=== PATIENT | female | born 1975 | race Caucasian/White ===

== ENCOUNTER 2017-04-06 12:46 | Emergency (ER) | payer MEDICARE, OTHER ==
[2017-04-06 12:59] VITALS: BP 126/73; PULSE 63; RESP 18; TEMP 97.6
--- NOTE | 2017-04-06 13:21 | ED ---
ENT HPI - General Chief complaint: Dental/Oral Stated complaint: Tooth Pain Time Seen by Provider: 04/06/17 13:14 Source: patient Mode of arrival: ambulatory Limitations: no limitations - History of Present Illness Initial comments: Patient is a 42-year-old female presenting to the emergency department with complaints of right lower toothache to tooth #30. Patient states she has a history of a fractured tooth to tooth #30 and has been trying to get into the dental clinic to have it pulled for 3 months. Patient states that yesterday morning, the tooth and surrounding gum tissue started hurting. Patient states she took some Tylenol 3 at home with minimal relief. Patient denies chills, fevers, nausea, vomiting, shortness of breath, trismus, chest pain, or abdominal pain. Patient denies ear pain. Patient denies antibiotic use in the last 30 days. MD complaint: tooth pain Onset/Timin -: days(s) Location: tooth # (30) Severity: moderate Severity scale (1-10): 8 Quality: burning, sharp Improves with: cold therapy Worsens with: eating Context- Dental: history of dental caries (Fractured tooth #30) Associated Symptoms: gum swelling, toothache - Related Data Previous Rx's Medication Instructions Recorded Acetaminophen-Codeine 300-30mg 1 tab PO Q4H PRN #12 tablet 04/06/17 [Tylenol #3] Ibuprofen [Motrin] 800 mg PO Q8H PRN #20 tab 04/06/17 Penicillin V Potassium [Pen Vee K] 500 mg PO QID #28 tab 04/06/17 Allergies Allergy/AdvReac Type Severity Reaction Status Date / Time bee venom protein (honey bee) Allergy Anaphylaxis Verified 04/06/17 12:59 lovastatin Allergy Anaphylaxis Verified 04/06/17 12:59 Sulfa (Sulfonamide Allergy Nausea & Verified 04/06/17 12:59 Antibiotics) Vomiting metal Allergy Rash/Hives Uncoded 04/06/17 12:59 Review of Systems ROS Statement: Those systems with pertinent positive or pertinent negative responses have been documented in the HPI. ROS Other: All systems not noted in ROS Statement are negative. Past Medical History Past Medical History: Cancer Additional Past Medical History / Comment(s): breast, kidney disease, post head injury History of Any Multi-Drug Resistant Organisms: None Reported Past Surgical History: Breast Surgery, Cholecystectomy, Orthopedic Surgery, Tubal Ligation Additional Past Surgical History / Comment(s): wrist, finger Past Psychological History: Anxiety, PTSD Smoking Status: Current every day smoker Past Alcohol Use History: Rare Past Drug Use History: Unable to Obtain General Exam Limitations: no limitations General appearance: alert, in no apparent distress Head exam: Present: atraumatic, normocephalic, normal inspection Eye exam: Present: normal appearance, PERRL ENT exam: Present: normal exam, normal oropharynx, mucous membranes moist, TM's normal bilaterally, normal external ear exam Expanded Ear exam: Present: normal external inspection Mouth exam: Present: normal external inspection, tongue normal. Absent: drooling, trismus Teeth exam: Present: fractured tooth # (30), dental tenderness # (30), gingival enlargement (Adjacent to tooth #30, no evidence of abscess) Throat exam: normal inspection. negative: tonsillar erythema, tonsillar exudate , R peritonsillar mass Neck exam: Present: normal inspection, full ROM. Absent: tenderness, lymphadenopathy Respiratory exam: Present: normal lung sounds bilaterally. Absent: respiratory distress, wheezes, rales, rhonchi, stridor Cardiovascular Exam: Present: regular rate, normal rhythm, normal heart sounds. Absent: systolic murmur, diastolic murmur, rubs, gallop, clicks GI/Abdominal exam: Present: soft, normal bowel sounds. Absent: distended, tenderness, guarding, rebound, rigid Extremities exam: Present: normal inspection, full ROM, normal capillary refill. Absent: tenderness, pedal edema, joint swelling, calf tenderness Neurological exam: Present: alert, oriented X3, normal gait, other (No focal deficits noted) Psychiatric exam: Present: normal affect, normal mood Skin exam: Present: warm, dry, intact, normal color Course Vital Signs 04/06/17 12:54 Temperature 97.6 F Pulse Rate 63 Respiratory 18 Rate Blood Pressure 126/73 O2 Sat by Pulse 98 Oximetry Medical Decision Making - Medical Decision Making Toothache with minimal gum swelling to tooth #30 with history of fracture to same tooth. Patient placed on antibiotics and pain medicine. Patient instructed [facility]. Patient given instructions and phone number to dental clinic. Patient started to follow-up with primary care physician and return to the emergency department if symptoms do not improve or get worse. Patient agrees with treatment plan. Discharge instructions and return parameters reviewed. Disposition Clinical Impression: Toothache, Fracture of tooth Disposition: HOME SELF-CARE Condition: Good Instructions: Toothache (ED) Additional Instructions: Finish antibiotics as prescribed. Continue Motrin and Tylenol 3 for pain as needed. May apply warm compresses for relief. Follow-up with [facility], please see address and phone number provided on discharge. Follow-up with primary care physician as needed. Please return to the emergency department if symptoms do not improve or get worse. Prescriptions: Acetaminophen-Codeine 300-30mg [Tylenol #3] 1 tab PO Q4H PRN #12 tablet PRN Reason: Pain Ibuprofen [Motrin] 800 mg PO Q8H PRN #20 tab PRN Reason: Pain Penicillin V Potassium [Pen Vee K] 500 mg PO QID #28 tab Referrals: Nikolay Edwards DO [Primary Care Provider] - 1-2 days Time of Disposition: 13:20
== END 2017-04-06 13:35 | disposition home or self-care (01) ==
LOC: EC 12:46
DX: S02.5XXA Fracture of tooth (traumatic), initial encounter for closed fracture (principal); F17.200 Nicotine dependence, unspecified, uncomplicated; Z85.3 Personal history of malignant neoplasm of breast; Z88.2 Allergy status to sulfonamides; Z88.8 Allergy status to other drugs, medicaments and biological substances; Z91.030 Bee allergy status; X58.XXXA Exposure to other specified factors, initial encounter
CPT/HCPCS: 99282

== ENCOUNTER → 2017-07-31 | Outpatient (CLI) | payer MEDICARE, OTHER ==
--- NOTE | 2017-08-07 07:16 | MM ---
Reason for exam: clinical finding. Last mammogram was performed 2 years and 7 months ago. History: Family history of breast cancer in sister at age 43. Benign excisional biopsy of the right breast. Indicated problem(s): lump or thickening in both breasts. Physical Findings: Nurse Summary: 0.5cm nodule in the right breast at 12 o'clock and a 1cm nodule in the left breast at 12 o'clock (nurse kp). MG Diagnostic Mammo w CAD JAISON Bilateral CC and MLO view(s) were taken. Prior study comparison: December 22, 2014, mammogram, performed at [facility] [place]. March 10, 2008, mammogram, performed at [facility] [place]. The breast tissue is extremely dense which could obscure a lesion on mammography. There is no discrete abnormality at bilateral BB's. No significant new findings when compared with previous films. These results were verbally communicated with the patient and result sheet given to the patient on 07/31/17. ASSESSMENT: Negative, BI-RAD 1 RECOMMENDATION: Routine screening mammogram of both breasts in 1 year. Manage on a clinical basis with regard to palpable.
--- NOTE | 2017-08-07 07:22 | USB ---
Reason for exam: clinical finding. History: Family history of breast cancer in sister at age 43. Benign excisional biopsy of the right breast. Indicated problem(s): lump or thickening in both breasts. US Breast BILAT Right breast ultrasound includes all four quadrants, the retroareolar region and axilla. Finding demonstrates a 6mm cyst with debris at BB at 12 o'clock and a 6mm mixed lesion at 12 o'clock for which a biopsy is recommended. Left breast ultrasound includes all four quadrants, the retroareolar region and axilla. Finding demonstrates a 12mm cyst at BB at 12 o'clock and a 7mm mixed lesion at 2 o'clock for which a 3 month follow up ultrasound is recommended. Few scattered cysts bilaterally. These results were verbally communicated with the patient on 08/06/17. ASSESSMENT: Suspicious, BI-RAD 4 RECOMMENDATION: Ultrasound core biopsy of the right breast. (12 o'clock) Called Dr. Edwards with mammographic findings and has scheduled an appointment for the patient for 08/08/[address] Tabor. PRELIMINARY REPORT CALLED AND FAXED TO DR. TABOR ON 08/07/17. Ultrasound of the left breast in 3 months.
== END | disposition home or self-care (01) ==
LOC: RADMAMWWP 14:50
PROVIDERS: ATTEND Family Medicine
DX: N63 Unspecified lump in breast (principal); R92.8 Other abnormal and inconclusive findings on diagnostic imaging of breast
CPT/HCPCS: 76641; G0204

== ENCOUNTER 2022-09-02 23:30 | Emergency (ER) | payer OTHER, MEDICARE ==
[2022-09-02 23:48] VITALS: RESP 18; TEMP 98
[2022-09-03] MEDS ORDERED: ORPHENADRINE 30 MG/ML 2 ML VIAL IM STA (01:09)
[2022-09-03] MEDS ORDERED: KETOROLAC 15 MG/ML 1 ML VIAL IM STA (01:10)
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
[2022-09-03] MEDS ORDERED: IBUPROFEN 400 MG TAB PO STA (01:27)
[2022-09-03] MEDS ORDERED: CYCLOBENZAPRINE 10 MG TAB PO STA (01:27)
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
[2022-09-03 05:08] VITALS: BP 145/58; PULSE 70
== END 2022-09-03 04:00 | disposition home or self-care (01) ==
LOC: EC 23:30
DX: M50.322 Other cervical disc degeneration at C5-C6 level (principal); Z87.891 Personal history of nicotine dependence; Z91.030 Bee allergy status; Z88.8 Allergy status to other drugs, medicaments and biological substances; Z88.2 Allergy status to sulfonamides; V89.2XXA Person injured in unspecified motor-vehicle accident, traffic, initial encounter
CPT/HCPCS: 70450; 72125; 72128; 99285